=== PATIENT | female | born 1995 | race Caucasian/White ===

== ENCOUNTER 2020-02-03 13:17 | Emergency (ER) | payer OTHER, SELFPAY ==
[2020-02-03 13:18] VITALS: BP 154/100; PULSE 104; RESP 18; TEMP 36.6; O2SAT 98; BMI 26.2
--- NOTE | 2020-02-03 14:13 | RAD_ITS ---
STUDY: X-RAY - LEFT ELBOW REASON FOR EXAM: Female, 24 years old. LEFT ELBOW PAIN AFTER MOVING SOMETHING AT WORK TECHNIQUE: 3 view(s) of the elbow. COMPARISON: None. FINDINGS: Normal visualized humerus, radius and ulna. Normal radiocapitellar and ulnotrochlear articulations. The soft tissue structures are unremarkable. RAD/Elbow min 3 Views IMPRESSION: Normal x-ray examination of the elbow. Electronically Signed: Jeremiah Long, at 14:23 EDT , Service support ,
--- NOTE | 2020-02-03 14:16 | ED.VIS.GEN ---
History of Present Illness Chief Complaint: Upper Extremity Injury Informant: Patient Narrative: Patient is a 24-year-old previous healthy female who presents to the [facility] for left elbow pain. She states that she was at work pulling pallets whenever she felt the discomfort start. The pain started to radiate up her tricep. She denies any other previous injury to this. She has tried taking Tylenol for this which has not given her any relief. Movements do make the pain worse. She denies any chest pain or shortness of breath. No shoulder pain or wrist pain. She denies any other trauma to it. No significant swelling. No overlying skin changes. She denies any systemic symptoms including fever/chills or nausea/vomiting. Past Medical History - Allergies and Home Meds Allergies/Adverse Reactions: Allergies No Known Allergies Allergy (Verified 02/03/20 13:21) Primary Care Physician: Gema Schwab DO [Primary Care Provider] - Prior records reviewed: Yes Past Medical History: None Surgical History: no surgical history Smoking Status: Never smoker Alcohol: Occasional Drugs: None Review of Systems All systems negative except as indicated General: Denies: Chills, Fever, Sweats Eyes: Denies: Visual changes - bilaterally, Diplopia ENT: Denies: Rhinorrhea Cardiovascular: Denies: Chest pain, Palpitations Respiratory: Denies: Dyspnea, Cough, Dyspnea on exertion Gastrointestinal: Denies: Abdominal pain, Nausea, Vomiting Genitourinary: Denies: Dysuria, Hematuria, Frequency Musculoskeletal: Reports: Extremity Pain. Denies: Back pain Skin: Denies: Rash, Wounds Neurological: Denies: Headache, Weakness, Numbness Physical Exam Vital Signs/Narrative: Vital Signs Temp Pulse Resp BP Pulse Ox 02/03/20 13:18 97.9 F 104 H 18 154/100 H 98 Inital Vital Signs reviewed: Yes General: Well nourished, Well developed, No Acute Distress Head: Normocephalic, Atraumatic Eyes: Perrl, EOMI ENT: Moist mucous membranes, No rhinorrhea Neck: Supple, Nontender Cardiovascular: Regular rate, Regular rhythm, No murmurs Respiratory: No distress, CTA bilaterally, Chest nontender Abdomen: Soft, Nontender, Nondistended, Normal bowel sounds Back: Nontender, Normal Inspection Extremities: No edema, - - Mild tenderness to proximal olecranon. Very minimal swelling present. No significant out of proportion to exam. No pain with passive range of motion. She does have a decreased range of motion due to pain. Otherwise neurovascular intact 2+ radial pulse. Good director critical care strength. Skin: Normal color, No rash Neurological: Alert, Oriented x3, Cranial nerves II-XII grossly intact, Normal Strength, Normal Sensation Psychological: Normal affect, Normal Mood Diagnostic/Tx/Re-eval - Medical Decision Making Patient presents the [facility] for nontraumatic elbow pain. She injured this while pulling pallets. Will obtain an x-ray. She is declining any pain medication at this time. ED Disposition - Plan for ED Patient: Disposition: Home or Assisted Living Diagnosis: Elbow pain Instructions: ED Bursitis Elbow Olecranon, ED ELBOW SPRAIN Referrals: Gema Schwab DO [Primary Care Provider] - 3-5 Days
== END 2020-02-03 15:03 | disposition home or self-care (01) ==
PROVIDERS: Emergency Provider Emergency Medicine
DX: S59.902A Unspecified injury of left elbow, initial encounter (principal); M25.522 Pain in left elbow; X50.9XXA Other and unspecified overexertion or strenuous movements or postures, initial encounter; Y93.9 Activity, unspecified; Y92.9 Unspecified place or not applicable; Y99.0 Civilian activity done for income or pay
CPT/HCPCS: 73080; 99283